=== PATIENT | female | born 1985 | race African-American/Black ===

== ENCOUNTER 2024-07-02 16:08 | Emergency (ER) | payer MEDICAID, SELFPAY ==
[2024-07-02 16:17] VITALS: BP 121/77; PULSE 69; TEMP 36.8; O2SAT 99; BMI 37.8
--- NOTE | 2024-07-02 16:34 | ED.MEDCLEAR1 ---
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 She had this procedure performed this morning at her [employer] office in [place]. She states she had to go to work this afternoon and is having aching and pain in the left arm. She believes she may have bumped the site because she noticed some bleeding around the Band-Aid that was placed. She has no other focal medical complaints at this time. Related Information Previous Rx's ?Medication ?Instructions ?Recorded ketorolac 10 mg tablet 10 mg PO TID PRN pain #10 tabs 07/02/24 Allergies Allergy/AdvReac Type Severity Reaction Status Date / Time doxycycline AdvReac Mild Abdominal Verified 07/02/24 16:22 Pain Review of Systems ROS Constitutional Denies: fever or chills Ears, nose, mouth, and throat Denies: throat pain or nasal congestion Respiratory Denies: shortness of breath Gastrointestinal Denies: nausea or vomiting Integumentary/Breast Denies: rash Hematologic/Lymphatic Denies: easy bruising or easy bleeding Exam Narrative Exam Narrative: Gen.: Awake, alert, in no distress Head: Normocephalic, atraumatic ENT: Moist mucous membranes Respiratory: No respiratory distress Extremities: Moves extremities equally, Steri-Strips in place with mild red blood and Band-Aid noted to the left medial arm. No pulsatile mass, no large areas of swelling or bleeding. No visible Nexplanon. Psych: Normal mood and affect Neuro: No focal neuro deficit Skin: Warm, dry, intact Constitutional Vital Signs, click to edit/add: Last Vital Signs Temp 98.2 F 07/02/24 16:17 Pulse 69 07/02/24 16:17 Resp 18 07/02/24 16:17 BP 121/77 07/02/24 16:17 Pulse Ox 99 07/02/24 16:17 O2 Del Method Room Air 07/02/24 16:17 Course Vital Signs Vital signs: Vital Signs Temperature 98.2 F 07/02/24 16:17 Pulse Rate 69 07/02/24 16:17 Respiratory Rate 18 07/02/24 16:17 Blood Pressure 121/77 07/02/24 16:17 Pulse Oximetry 99 07/02/24 16:17 Oxygen Delivery Method Room Air 07/02/24 16:17 Temperature 98.2 F 07/02/24 16:17 Pulse Rate 69 07/02/24 16:17 Respiratory Rate 18 07/02/24 16:17 Blood Pressure 121/77 07/02/24 16:17 Pulse Oximetry 99 07/02/24 16:17 Oxygen Delivery Method Room Air 07/02/24 16:17 MDM - Medical Clearance MDM Narrative Medical decision making narrative: Exam is consistent with typical postop Nexplanon insertion with aching and minimal bleeding from the insertion site to the left arm. The area was dressed and the patient is placed on NSAIDs for home. Follow-up PCP and return to the ER if symptoms change or worsen SUPERVISED APC VISIT, PHYSICIAN ATTESTATION: Based on the medical record the care appears appropriate. ? Medical Records Attestation: I reviewed the patient's medical records. Discharge Plan Discharge Stand Alone Forms: Work/School Release, Portal Instructions Chief Complaint: Medical Clearance Clinical Impression: Pain in left arm Patient Disposition: Home, Self-Care Time of Disposition Decision: 16:31 Condition: Good Prescriptions / Home Meds: New ketorolac 10 mg tablet 10 mg PO TID PRN (Reason: pain) Qty: 10 0RF Print Language: Wolof Instructions: Etonogestrel (Implant) (Nexplanon, Implanon) Referrals: [facility] [Primary Care Provider] - 1 week Discharge Date/Time: 07/02/24 16:40
== END 2024-07-02 16:40 | disposition home or self-care (01) ==
PROVIDERS: Emergency Provider Emergency Medicine
DX: M79.602 Pain in left arm (principal); Z98.890 Other specified postprocedural states
CPT/HCPCS: 99283